=== PATIENT | female | born 1985 | race Caucasian/White ===

== ENCOUNTER 2019-07-20 09:26 | Outpatient (CLI) | payer OTHER, SELFPAY ==
--- NOTE | 2019-07-20 | US_ITS ---
WS: [id number] ULTRASOUND TRANSABDOMINAL HISTORY: MULTIGRAVIDA IN SECOND TRIMESTER : 2 PARA: 1 COMPARISON: None available. FINDINGS: Cervical length is 5.08 cm cm; closed. Placenta grade 0, posterior cardiac tones 160 BPM. The visualized parts including the facial area, skull, chest, abdomen, extremities, and spine a re all normal. Biparietal diameter measures 4.6 cm, equals 20w0d. Head circumference measures 17.4 cm, equals 19w6d. Abdomen circumference measures 14.7 cm, equals 20w0d. Femur length measures 3.2 cm, equals 20w0d. Estimated gestational age 20 weeks gestation An estimated delivery August 07, 2019.. Estimated weight 326 g. US/US OB >= 14 weeks fetus [id number] IMPRESSION: Single live intrauterine uterines . Estimated gestational age 20 week s gestation and estimated delivery December 07, 2019.
== END 2019-07-20 09:27 | disposition home or self-care (01) ==
LOC: RADOUTREAD 11:52
PROVIDERS: Family Provider Family Medicine; Visit Provider Family Medicine
DX: Z76.89 Persons encountering health services in other specified circumstances (principal)

== ENCOUNTER 2019-12-07 01:20 | Inpatient (IN) | payer OTHER, SELFPAY ==
[2019-12-07] VITALS (116 sets, daily range): BP systolic 0–157; BP diastolic 0–104; PULSE 66–119; RESP 16; TEMP 36.6–37.1; O2SAT 97–100; BMI 35.6
[2019-12-07 01:48] LABS: Basophils % 0.4 %; Eosinophils # 0.1 10^3/uL (0.0-0.8); Eosinophils % 1.2 %; Hematocrit 35.3 % (37.0-47.0); Hemoglobin 11.3 g/dL (11.5-15.3); Lymphocytes % 21.2 %; Mean Corpuscular Hemoglobin 29.5 pg (28.0-34.0); Mean Corpuscular Volume 92.2 fL (81-99); Mean Platelet Volume 11.1 fL (7.4-10.4); Monocytes # 0.8 10^3/uL (0.2-0.9); Monocytes % 8.3 %; Neutrophils # 6.28 10^3/uL (1.8-7.7); Neutrophils % 67.9 %; Nucleated Red Blood Cells % 0 %; Platelet Count 234 10^3/cmm (130-400); Red Blood Count 3.83 10^6/uL (4.1-5.3); Red Cell Distribution Width 14.6 % (12.1-15.1); White Blood Count 9.3 10^3/uL (4.0-10.0)
[2019-12-07] MEDS: miSOPROStol 100 mcg tablet 25 MCG VAGINAL (02:33)
[2019-12-07] MEDS: lactated ringers 1,000 ML 999 ML IV ×3 (09:13→11:15)
--- NOTE | 2019-12-07 10:45 | ANES.PREANE2 ---
Pre-Anesthetic Assessment Pre-Anesthetic Assessment: Height/Weight: Height 1.65 m Weight 97.069 kg Temp Pulse Resp BP Pulse Ox 98.2 F 83 16 74/54 97 12/07/19 07:27 12/07/19 10:45 12/07/19 05:08 12/07/19 10:45 12/07/19 10:41 Preop Diagnosis: IUP Proposed Procedure: epidural Familial anesthetic complications: non Social: Social History: No alcohol and No tobacco Exam: Pre-Anes Outpt Exam: alert, oriented x 3, clear to auscultation bilaterally and regular rate & rhythm Airway: Cervical ROM: WNL MP: 2 Dentition: Chipped Anesthetic Plan: ASA status: 2 Anesthesia: Regional (specify below) Risk of > 500 ml blood loss (7ml/kg in children): Yes, adequate IV access and fluids planned Meds/Allergies Current Medications: Current Medications Generic Name Dose Route Start Last Admin Trade Name Freq PRN Reason Stop Dose Admin Lactated Ringer's 1,000 mls @ 999 m ls/hr 12/07/19 01:18 12/07/19 10:17 Lactated Ringers IV 999 mls/hr .Q1H1M PRN Administration labor PFSH Anesthesia Female Reproductive History: : 2 Data Anesthesia CBC & Chem 7: 12/07/19 01:05 Other Labs: Laboratory Results - last 48 hr 12/07/19 01:05 WBC 9.3 RBC 3.83 L Hgb 11.3 L Hct 35.3 L MCV 92.2 MCH 29.5 MCHC 32.0 RDW 14.6 Plt Count 234 MPV 11.1 H Neut % (Auto) 67.9 Lymph % (Auto) 21.2 Stokes % (Auto) 8.3 Eos % (Auto) 1.2 Baso % (Auto) 0.4 Neut # (Auto) 6.28 Lymph # (Auto) 2.0 Stokes # (Auto) 0.8 Eos # (Auto) 0.1 Baso # (Auto) 0.0 Nucleated RBC % (auto) 0 Nucleated RBCs # 0.0 Cardiac Studies: No Data to Display
--- NOTE | 2019-12-07 10:46 | ANES.PROC ---
Anesthesia Procedures Procedure/Date: 12/07/19 Epidural: Time Out Performed: Yes Consents Signed: Procedure Consent Consent: requested by attending/covering physician, from patient, risks and benefits reviewed and patient agrees to proceed Lumbar Level: L3-L4 Epidural position: sitting Epidural procedure: sterile prep of area, 1% lidocaine to numb the area, 18 g needle, negative for paresthesia passed, neg for paresthesia, test dose given, 1.5% xylocaine 1:200k epi (3 cc), placed PCEA, no systemic response, sterile dressing applied, L.U.D. no apparent complications and 0.2% Ropiavacaine @ mls/hr Additional Comments: Difficult placement, moved down to L3/4 interspace, RODNEY at 7 cm, threaded to 12 cm. Bupivicaine 0.25% 8 cc w/ fentanyl 100 mcg given via epidural catheter with subsequent pain-free contractions
[2019-12-07] MEDS: dextrose 5%-lactated ringers 1,000 ML 125 ML IV (13:15)
--- NOTE | 2019-12-07 13:37 | PC.NURSE ---
bolus dose given by anesthesia at 1034
[2019-12-07] MEDS: ondansetron 2 mg/ML SDV 2 mL 4 MG IVP (14:48)
[2019-12-07] MEDS: oxytocin 30 UNIT/500 ML BAG IV (18:14)
--- NOTE | 2019-12-07 19:40 | PC.NURSE ---
Pt pushing in lithotomy position.
--- NOTE | 2019-12-07 20:04 | PM.DELIVERY ---
Delivery Note: Date of delivery: December 07, 2019 Pre-Delivery Course: 34 year old at 40 weeks who presented for induction. She was placed on Cytotec 25 mcg. An amniotomy was performed. An epidural was placed. The patient progressed to complete without difficulty. She was allowed to labor down for about an hour. Despite her laboring down, there was minimal impact Delivery: DELIVERY: The patient progressed to complete without difficulty. Despite pushing for approximately hour, the baby no position change. I was able to palpate the baby's scalp determined that was in OP position. I manually rotated the head to an OA position. She then was able to make much better progress with pushing. She delivered a female with a weight of 8 pounds 12 ounces with Apgars of 7, 9. The baby was delivered from the SARATH position. The mouth and nose were suctioned after being placed on the mother's abdomen. After 1 minute the cord was then clamped and cut. There was no nuchal cord. There was no meconium. The placenta and 3 vessel cord were delivered intact shortly thereafter. The perineum and vaginal vault were carefully examined. No lacerations were noted. Blood loss was 200 mL. both the mother and the baby were in stable condition. Post-Delivery Status: Good A&P Assessment and plan (1) Spontaneous vaginal delivery: Status: Acute (2) 40 weeks gestation of : Status: Acute Coding Level of Care Code Acute Flight Attendant Ramp for Chg Fwd Diagnoses Spontaneous vaginal delivery O80 40 weeks gestation of Z3A.40
[2019-12-07] MEDS: benzocaine-menthol 78 gm Canister 1 SPRAY TOPICAL (21:30)
[2019-12-07] MEDS: lanolin oint 7 gm 1 APPLIC TOPICAL (21:31)
[2019-12-08 00:10] VITALS: BP 129/75; PULSE 75; RESP 16; O2SAT 98
[2019-12-08 05:10] VITALS: BP 126/72; PULSE 80; RESP 16; TEMP 36.8; O2SAT 98
--- NOTE | 2019-12-08 07:15 | P.DS_ITS ---
Discharge Providers STRATEGIC DEVELOPMENT MANAGER Date of Admission: 12/07/19 01:20 Date of Discharge: 12/08/19 Attending Provider at Admission: Colton Acosta MD Attending Provider at Discharge: Colton Acosta MD Primary Care Provider: Colton Acosta MD Diagnoses at Discharge Discharge Diagnosis (1) Spontaneous vaginal delivery: Status: Acute (2) 40 weeks gestation of : Status: Acute Reason for Visit Reason for Visit: Induction of labor Hospital Course Hospital Course: The patient presented to the hospital for induction of labor. She was initiated on Cytotec. An epidural was placed. An amniotomy was performed. Her labor was augmented with Pitocin as she was pushing. The baby's head had to be manually rotated to an OA position. The vaginal delivery was unremarkable otherwise. Her course has been unremarkable. Her bleeding has been within normal limits. She is breast-fed well. Her pain is been well controlled overall. She has had some problem with nausea due to the cramping and pain she has had while breast-feeding. Information Peripartum Data: Infant Delivery Method: Vaginal Physical Exam Narrative: EXAM NARRATIVE: The patient is alert. She appears comfortable. Her heart has a regular rate and rhythm with no murmurs appreciated. Lungs are clear to auscultation bilaterally. Her fundus is firm and below the umbilicus. Urinary Catheter Management^: Montano: Cath Placed During This Visit: yes, but has since been removed by the nurse Reason for Continuing Indwelling Catheter: Acute Urinary Retention or Obstruction Urinary Catheter Date of Insertion: 12/07/19 Urinary Catheter Time of Insertion: 11:40 Date Urinary Catheter Removed: 12/07/19 Time Urinary Catheter Discontinued: 17:48 Discharge Data Data Completed and Pending: Pending at discharge Category Date Time Status Hemagram Timed Lab 12/08/19 08:03 Ordered Vitals: Last Vital Signs Temp 98.2 F 12/08/19 05:10 Pulse 80 12/08/19 05:10 Resp 16 12/08/19 05:10 BP 126/72 12/08/19 05:10 Pulse Ox 98 12/08/19 05:10 Discharge Plan Discharge Patient Disposition: Home Condition: Stable Prescriptions: New ibuprofen 800 mg Tablet 800 mg PO TID Qty: 45 RF: 0 -U 106.5-1 mg Capsule 1 cap PO DAILY Qty: 90 RF: 0 Discharge Orders: Discharge Order (Routine); Ordered 12/08/19 Ordered By: Colton Acosta Referrals: Colton Acosta MD [Primary Care Provider] - 6 Weeks Discharge Diet: Usual diet Discharge Activity: Limit activity as instructed Discharge Attestations STRATEGIC DEVELOPMENT MANAGER Time Spent in Discharge Care*: less than 30 min Coding Level of Care Code Acute Highway Maintenance Supervisor for Chg Fwd Diagnoses Spontaneous vaginal delivery O80 40 weeks gestation of Z3A.40
[2019-12-08 08:40] LABS: Hematocrit 32.4 % (37.0-47.0); Hemoglobin 10.1 g/dL (11.5-15.3); Mean Corpuscular HGB Conc 31.2 g/dL (30.0-36.0); Mean Corpuscular Hemoglobin 28.7 pg (28.0-34.0); Mean Platelet Volume 11.1 fL (7.4-10.4); Platelet Count 194 10^3/cmm (130-400); Red Blood Count 3.52 10^6/uL (4.1-5.3); Red Cell Distribution Width 14.5 % (12.1-15.1); White Blood Count 12.3 10^3/uL (4.0-10.0)
[2019-12-08] MEDS: HYDROcodone-acetaminophen 5-325 mg Tablet PO (09:33)
[2019-12-08] MEDS: prenatal vitamin Capsule 1 CAP PO (09:34)
[2019-12-08] MEDS: docusate sodium 100 mg Capsule PO ×2 (09:34→18:00)
[2019-12-08 09:38] VITALS: BP 123/69; PULSE 81; RESP 18; TEMP 36.8; O2SAT 98
[2019-12-08 18:03] VITALS: BP 105/78; PULSE 63; RESP 18; TEMP 36.7; O2SAT 98
[2019-12-08 21:05] VITALS: BP 120/74; PULSE 71; RESP 16; TEMP 37; O2SAT 98
--- NOTE | 2019-12-08 22:40 | PC.NURSE ---
Pt. will need to get MMR as outpt or in doctor office.
--- NOTE | 2019-12-08 22:41 | PC.NURSE ---
Discharge instructions gone over.
== END 2019-12-08 21:05 | disposition home or self-care (01) | DRG 807 ==
LOC: OBGYN 12-08 07:18 → OPOB 12-08 07:59
PROVIDERS: Admitting Provider Family Medicine; PCP Family Medicine; Visit Provider Family Medicine
DX: O80 Encounter for full-term uncomplicated delivery (principal); Z37.0 Single live birth; Z3A.40 40 weeks gestation of pregnancy
CPT/HCPCS: 12345; 36415; 51702; 59025; 59409; 85025; 85027; 96375; 98960; J2405; J2795

== ENCOUNTER 2022-03-14 06:00 | Outpatient (CLI) | payer OTHER, SELFPAY | END 2022-03-14 06:01 | disposition home or self-care (01) | LOC: LAB 15:31 | PROVIDERS: Visit Provider Surgery | DX: R10.9 Unspecified abdominal pain (principal) | CPT/HCPCS: 87338 ==

== ENCOUNTER 2022-11-09 07:33 | Outpatient (CLI) | payer OTHER, SELFPAY ==
[2022-11-09 09:35] LABS: Free T4 Free Thyroxine 1.15 ng/dL (0.82-1.77); Testosterone Total 24.8 ng/dL (8.4-48.1); Thyroid Stimulating Hormone 2.13 uIU/mL (0.27-4.20)
[2022-11-09 10:56] LABS: Prolactin 9.61 ng/mL (4.8-23.3)
[2022-11-10 09:54] LABS: T3 Total 113 ng/dL (76-181)
[2022-11-10 10:09] LABS: Dehydroepiandrosterone Sulfate 225 mcg/dL (19-237)
== END 2022-11-09 07:34 | disposition home or self-care (01) ==
PROVIDERS: PCP Family Medicine; Visit Provider Internal Medicine
DX: E28.2 Polycystic ovarian syndrome (principal); R63.5 Abnormal weight gain
CPT/HCPCS: 82627; 84146; 84403; 84439; 84443; 84480

== ENCOUNTER → 2023-04-16 09:14 | Outpatient (BNVA) | payer OTHER, SELFPAY | PROVIDERS: PCP Family Medicine; Visit Provider Family Medicine | DX: O26.892 Other specified pregnancy related conditions, second trimester (principal); Z3A.26 26 weeks gestation of pregnancy | CPT/HCPCS: 76816 ==

== ENCOUNTER → 2023-05-25 12:26 | Outpatient (BNVA) | payer OTHER, SELFPAY | PROVIDERS: PCP Family Medicine; Visit Provider Emergency Medicine | DX: J02.9 Acute pharyngitis, unspecified (principal) | CPT/HCPCS: 87071; 87880 ==

== ENCOUNTER → 2023-05-26 | Outpatient (BNVA) | payer OTHER, SELFPAY ==
--- NOTE | 2023-07-16 08:37 | P.ANESASSM_ITS ---
Pre-Anesthetic Assessment Height/Weight: Height 1.63 m Epidural Familial anesthetic complications: None Social No alcohol and No tobacco Exam alert, oriented x 3, clear to auscultation bilaterally and regular rate & rhythm Airway Mallampati: Class III Dentition: other (missing) GI Gastroesophageal Reflux Disease Metabolic PCOS Anesthetic Plan ASA status: 2 Anesthesia: Regional (specify below) Risk of > 500 ml blood loss (7ml/kg in children): Yes, adequate IV access and fluids planned Medications/Allergies Home Medications Medication Instructions Recorded Confirmed Last Taken Type ibuprofen 800 mg tablet 800 mg PO TID #45 tabs 12/08/19 05/25/23 Unknown Rx multivitamin no.51-ferrous 1 cap PO DAILY #90 caps 12/08/19 05/25/23 Unknown Rx fumarate 106.5 mg-folic acid 1 mg capsule (-U) azithromycin 500 mg tablet 500 mg PO DAILY 5 days #5 tabs 05/25/23 05/25/23 Unknown Rx (Zithromax) Allergies Allergy/AdvReac Type Severity Reaction Status Date / Time No Known Allergies Allergy Verified 05/25/23 12:16 [facility] Anesthesia Medical History Psychiatric care PCOS (polycystic ovarian syndrome) Social History Smoking and tobacco/nicotine status: never used tobacco/nicotine Data Anesthesia Cardiac Studies: No Data to Display
== END ==
PROVIDERS: PCP Family Medicine; Visit Provider Emergency Medicine
DX: J02.9 Acute pharyngitis, unspecified (principal)
CPT/HCPCS: 87071

== ENCOUNTER 2023-07-28 21:54 | Inpatient (IN) | payer OTHER, SELFPAY ==
[2023-07-28 19:35] VITALS: BMI 37.9
[2023-07-28 20:21] LABS: Basophils % 0.3 %; Eosinophils # 0.1 10^3/uL (0.0-0.8); Eosinophils % 0.9 %; Lymphocytes # 1.9 10^3/uL (0.8-4.8); Lymphocytes % 21.7 %; Mean Corpuscular HGB Conc 33.2 g/dL (30-55); Mean Corpuscular Hemoglobin 30.8 pg (27-33); Mean Corpuscular Volume 92.5 fl (85-98); Mean Platelet Volume 11.1 fL (7.4-10.4); Monocytes # 0.6 10^3/uL (0.2-0.9); Monocytes % 7.2 %; Neutrophils # 5.91 10^3/uL (1.8-7.7); Neutrophils % 68.9 %; Nucleated Red Blood Cells % 0 %; Platelet Count 228 10^3/cmm (157-399); White Blood Count 8.59 10^3/uL (3.29-11.43)
[2023-07-28 20:37] VITALS: BP 139/76; PULSE 41
[2023-07-28] MEDS: miSOPROStol 100 mcg tablet 25 MCG VAGINAL (21:09)
[2023-07-28 21:10] VITALS: BP 134/78; PULSE 78
[2023-07-28 22:44] VITALS: BP 144/87; PULSE 75
[2023-07-28 23:11] VITALS: TEMP 36.6
[2023-07-29] VITALS (70 sets, daily range): BP systolic 94–188; BP diastolic 49–98; PULSE 38–103; RESP 16; TEMP 36.4–37.1; O2SAT 97; BMI 37.9
[2023-07-29] MEDS: morphine 4 mg/mL SDV 1 mL 8 MG IM (00:39)
[2023-07-29] MEDS: promethazine 25 mg/mL SDV 1 mL IM (00:40)
[2023-07-29] MEDS: miSOPROStol 100 mcg tablet 25 MCG VAGINAL (02:20)
[2023-07-29] MEDS: fentaNYL 50 mcg/mL INJ 2mL IVP (07:48)
--- NOTE | 2023-07-29 07:48 | P.HPUD_ITS ---
Labor & Delivery H&P Update Date of Procedure: July 29, 2023 Date H&P Performed: 07/26/23 Changes to previous documentation: Presenting for induction. No changes since last visit. Admission Diagnosis: 37-year-old 3 para 2-0-0-2 at 41 weeks estimated gestational age. Primary indication for procedure: Postdates Planned procedure: Spontaneous vaginal delivery Other information: The patient is an otherwise healthy 37-year-old 3 para 2-0-0-2 female w ho presented to the hospital for induction. Her had been relatively unremarkable. Her blood type is O+. She is rubella immune. She failed her 1 clinical glucose screen but passed her 3-hour glucose screen. She is rubella immune. She is GBS negative. The remainder of her infectious disease profile is within normal limits.
[2023-07-29] MEDS: lactated ringers 1,000 ML 999 ML IV (08:00)
[2023-07-29] MEDS: ondansetron 2 mg/ML SDV 2 mL 4 MG IVP ×2 (08:04→14:59)
[2023-07-29] MEDS: ROPivacaine syringe 100 MG/50 ML SYRINGE 10 MG EPIDURAL ×2 (08:06→10:55)
--- NOTE | 2023-07-29 09:12 | ANES.PAUD2 ---
Pre-Anesthetic Update Pre-Anesthetic Assessment: Date of Surgery/Procedure: 07/29/23 Proposed Procedure: Epidural Any changes to Pre-Anesthetic Assessment?: No Labs Last 48hrs: Short CBC 07/28/23 Range/Units 19:53 WBC 8.59 (3.29-11.43) 10^ 3/uL Hgb 12.30 (11.27-16.99) g/ dL Hct 37.0 (36-47) % MCV 92.5 (85-98) fl Plt Count 228 (157-399) 10^3/c mm Neut % (Auto) 68.9 % Neut # (Auto) 5.91 (1.8-7.7) 10^3/u L Vitals: Temperature 97.9 F 07/28/23 23:11 Pulse Rate 93 07/29/23 09:08 Pulse Rhythm Regular 07/28/23 19:35 Pulse Strength 3+ Normal 07/28/23 19:35 Respiratory Rate 16 07/29/23 07:48 Respiratory Effort Spontaneous, Non- Labored 07/29/23 00:39 Respiratory Depth Normal 07/29/23 00:39 Respiratory Patter n Normal 07/28/23 19:35 Blood Pressure 156/85 07/29/23 09:08 Pulse Oximetry 97 07/29/23 08:36 Oxygen Delivery Me thod Room Air 07/28/23 19:35 Exam: Pre-Anes Outpt Exam: alert, oriented x 3, clear to auscultation bilaterally and regular rate & rhythm Cardiac Studies: No Data to Display
--- NOTE | 2023-07-29 09:12 | ANES.PROC ---
Anesthesia Procedures Procedure/Date: 07/29/23 Epidural: Time Out Performed: Yes Consents Signed: Procedure Consent Consent: requested by attending/covering physician, from patient, from other, risks and benefits reviewed and patient agrees to proceed Lumbar Level: L3-L4 Epidural position: sitting Epidural procedure: sterile prep of area, 1% lidocaine to numb the area, 18 g needle, negative for paresthesia passed, neg for paresthesia, test dose given, 1.5% xylocaine 1:200k epi (5), 0.2% Ropivacaine bolus ml (5), placed PCEA, no systemic response, sterile dressing applied, L.U.D. no apparent complications and 0.2% Ropiavacaine @ mls/hr (13) Additional Comments: LOT at 5 cm, threaded to 11.5 cm, attached pump and started bolus, quickly discovered pump not primed. paused and primed pump. pain of contractions decreased from 9/10 to 7/10. Encouraged bolus use as frequently as possible. Possibility that introduction of epidural air may be leading to patchy block
[2023-07-29] MEDS: dextrose 5%-lactated ringers 1,000 ML 125 ML IV ×2 (10:00→13:41)
--- NOTE | 2023-07-29 15:33 | PM.DELIVERY ---
Delivery Note: Date of delivery: July 29, 2023 Pre-delivery diagnoses: 37-year-old 3 para 2-0-0-2 at 41 weeks estimated gestational age Post-delivery diagnoses: Status post spontaneous vaginal delivery Procedure: Spontaneous vaginal delivery Estimated blood loss (mL): 100 Pre-Delivery Course: The patient presented to the hospital for induction due to being postdates. She was placed on Cytotec 25 mcg per vagina. An amniotomy was performed. An epidural was placed she progressed to complete without difficulty. Delivery: DELIVERY: The patient progressed to complete without difficulty. She delivered a female with a weight of 9 pounds 9 ounces with Apgars of 9, 9. The baby was delivered from the SARATH position. The baby's mouth and nose were suctioned at the site of the perineum. The baby was then completely delivered and placed on the mother's abdomen. The cord was then clamped and cut. There was no nuchal cord. There was no meconium. The placenta and 3 vessel cord were delivered intact shortly thereafter. The perineum and vaginal vault were carefully examined. No lacerations were noted. Both the mother and the baby were in stable condition. Post-Delivery Status: Good A&P Assessment and plan (1) Spontaneous vaginal delivery: I anticipate routine care Coding Level of Care Code Acute Code for Chg Fwd Diagnoses Spontaneous vaginal delivery O80
[2023-07-29] MEDS: docusate sodium 100 mg Capsule PO (17:14)
[2023-07-29] MEDS: HYDROcodone-acetaminophen 5-325 mg Tablet PO ×2 (17:14→23:28)
[2023-07-29] MEDS: ibuprofen 800 mg tablet PO (20:04)
[2023-07-29 20:41] LABS: Basophils % 0.1 %; Eosinophils % 0.1 %; Hematocrit 36.4 % (36-47); Lymphocytes # 1.3 10^3/uL (0.8-4.8); Lymphocytes % 9.2 %; Mean Corpuscular Hemoglobin 30.5 pg (27-33); Mean Corpuscular Volume 92.6 fl (85-98); Mean Platelet Volume 10.9 fL (7.4-10.4); Monocytes # 0.8 10^3/uL (0.2-0.9); Monocytes % 5.5 %; Neutrophils # 12.32 10^3/uL (1.8-7.7); Neutrophils % 84.4 %; Nucleated Red Blood Cells % 0 %; Platelet Count 187 10^3/cmm (157-399); Red Blood Count 3.93 10^6/uL (3.85-5.65); White Blood Count 14.59 10^3/uL (3.29-11.43)
[2023-07-29] MEDS: NIFEdipine ER (24 hr) 30 mg Tablet PO (20:47)
[2023-07-29 20:59] LABS: Add Urine Microscopic? YES; Bilirubin Urine Neg (Negative); Blood Urine 3+ (Negative); Glucose Urine UA 1+ (Normal); Ketones Urine 1+ (Negative); Leukocyte Esterase Urine 1+ (Negative); Nitrate Urine Negative (Negative); Protein Urine 1+ (Negative); Specific Gravity, Urine 1.005 (1.005-1.030); Urine Appearance Hazy (CLEAR); Urobilinogen Urine Neg (Negative); pH Urine 6 (5-7)
[2023-07-29 21:02] LABS: Add Urine Culture? Yes; Bacteria Urine TRACE /hpf; RBC Urine >100 /hpf (0-2); Squamous Epithelial Cell Urine 0-4 /hpf (0-5); Urine Color Yellow (Yellow)
[2023-07-29 21:05] LABS: Alanine Aminotransferase 12 U/L (0-33); Alkaline Phosphatase 101 U/L (35-105); Blood Urea Nitrogen 6 mg/dL (6-20); Calcium 8.4 mg/dL (8.5-10.5); Carbon Dioxide 19 mmol/L (22-29); Chloride 109 mmol/L (98-107); Creatinine Clr Calc Pharmacy 150.6457; Globulin 2.4 g/dL (1.3-4.6); Glomerular Filtration Rate 113.8 mL/min (90-130); Glucose 176 mg/dL (65-115); Osmolality Calculated 292 mOsm/kg (285-295); Sodium 140 mmol/L (136-145); Total Bilirubin 0.7 mg/dL (0.15-1.2); Total Protein 5.4 g/dL (6.6-8.7); Uric Acid 5.5 mg/dL (2.4-5.7)
[2023-07-29 21:06] LABS: Anion Gap 15.6 (5-19); Aspartate Amino Transferase 26 U/L (0-32); Potassium 3.6 mmol/L (3.5-5.1)
[2023-07-29 21:12] LABS: Urine Creatinine 30 mg/dL (28-217)
[2023-07-29 21:15] LABS: Urine Protein Random 21 mg/dL
[2023-07-30 00:23] VITALS: BP 132/82; PULSE 90
[2023-07-30 02:25] VITALS: BP 120/60; PULSE 36
[2023-07-30 04:23] LABS: Hematocrit 35.2 % (36-47); Mean Corpuscular HGB Conc 32.7 g/dL (30-55); Mean Corpuscular Hemoglobin 30.8 pg (27-33); Mean Corpuscular Volume 94.4 fl (85-98); Mean Platelet Volume 11.1 fL (7.4-10.4); Platelet Count 182 10^3/cmm (157-399); Red Blood Count 3.73 10^6/uL (3.85-5.65); Red Cell Distribution Width 15.2 % (12.1-15.1); White Blood Count 12.98 10^3/uL (3.29-11.43)
[2023-07-30] MEDS: HYDROcodone-acetaminophen 5-325 mg Tablet PO ×2 (04:30→19:03)
[2023-07-30 04:32] VITALS: BP 116/59; PULSE 72
--- NOTE | 2023-07-30 06:54 | P.PN_ITS ---
MANAGER SYSTEM Subjective 2 Subjective: Interval history: After the delivery, the patient began having some intermittent severe blood pressures. Some appear to be related to pain, but she had other elevated blood pressures that were not clearly related to pain. I elected to treat her with Procardia XL, and we did a preeclamptic profile which found that her protein creatinine ratio was 0.7. There was some blood in the urine, so it is likely that that number was artificially elevated. The patient has no symptoms of preeclampsia otherwise. She has not had any increased swelling. She has not had any headache or visual changes. Labor: Station: 0 Amniotic Membrane Status: Leaking Monitor Mode: External Contraction Pattern: Irregular Vitals/I&O/Wt Last Vital Signs Temp 98.7 F 07/29/23 21:30 Pulse 72 07/30/23 04:32 Resp 16 07/29/23 07:48 BP 116/59 07/30/23 04:32 Pulse Ox 97 07/29/23 08:36 O2 Del Method Room Air 07/28/23 19:35 07/29/23 07/29/23 07/30/23 14:59 22:59 06:59 Intake Total 510.417 / 510.417 Output Total 400 / 400 Balance 510.417 / 510.417 -400 / 110.417 Weight last 48 hrs Weight 221 lb Weight 221 lb Weight 221 lb Physical Exam 2 Narrative: The patient is alert. She appears comfortable. Her heart has a regular rate and rhythm with no murmurs appreciated. Lungs are clear to auscultation bilaterally. Her fundus is firm and at the umbilicus. Urinary Catheter Management: Montano: Cath Placed During This Visit: yes Urinary Catheter Date of Insertion: 07/29/23 Urinary Catheter Time of Insertion: 10:00 Data 07/30/23 04:05 07/29/23 20:32 A&P Assessment and plan (1) 41 weeks gestation of : We will continue to monitor her blood pressure. I am hopeful that she would be fine since she has no other symptoms of preeclampsia at this time. (2) Gestational hypertension: (3) Spontaneous vaginal delivery: Attestations 2 Medical Necessity Statement*: I anticipate the patient will need to stay in the hospital 1 more day to monitor her blood pressure. Coding Level of Care Code Acute Code for Chg Fwd Diagnoses 41 weeks gestation of O48.0; Z3A.41 Gestational hypertension O13.9 Spontaneous vaginal delivery O80
--- NOTE | 2023-07-30 08:00 | ANE.PACU2 ---
Inpatient post-anesthesia follow up: Airway intact: Yes Vital signs: Temperature 98.1 F Pulse Rate 80 Respiratory Rate 16 Blood Pressure 135/82 Pulse Oximetry 98 Oxygen Delivery Me thod Room Air Oxygen Flow Rate Fraction of Inspir ed Oxygen Hydration adequate: Yes Nausea and vomiting: No Pain level: 1 Mental status: Baseline Epidural Start/End: Epidural Start Date: 07/29/23 Epidural Start Time: 08:32 Epidural End Date: 07/29/23 Epidural End Time: 15:33
[2023-07-30] MEDS: lanolin oint 7 gm 1 APPLIC TOPICAL (08:58)
[2023-07-30] MEDS: docusate sodium 100 mg Capsule PO ×2 (08:59→19:04)
[2023-07-30] MEDS: ibuprofen 800 mg tablet PO ×3 (08:59→20:43)
[2023-07-30 09:36] VITALS: BP 99/56; PULSE 70; RESP 18; TEMP 36.2
[2023-07-30 15:51] VITALS: BP 143/72; PULSE 72; TEMP 36.1
[2023-07-30 20:00] VITALS: BP 144/93; PULSE 65; RESP 16; TEMP 36.7; O2SAT 97
[2023-07-31] VITALS: BP 144/83
[2023-07-31 04:49] VITALS: BP 150/91; PULSE 78; RESP 18; TEMP 36.8; O2SAT 94
--- NOTE | 2023-07-31 06:40 | PM.OBGYDC ---
Discharge Providers RIVETER PORTABLE MACHINE Date of Admission: 07/28/23 21:54 Date of Discharge: 07/31/23 Attending Provider at Admission: Colton Acosta MD Attending Provider at Discharge: Colton Acosta MD Primary Care Provider: Colton Acosta MD Diagnoses at Discharge Discharge Diagnosis (1) 41 weeks gestation of : Status: Acute (2) Gestational hypertension: Status: Acute (3) Spontaneous vaginal delivery: Status: Acute Reason for Visit Reason for Visit: induction of labor Hospital Course Hospital Course The patient presented to the hospital for induction due to postdates. She was placed on Cytotec 25 mcg. An epidural was placed. She progressed to complete and had an unremarkable delivery of a healthy appearing LGA female. Her course was remarkable for having elevated blood pressures. She was treated with Procardia and responded appropriately. She had no signs or symptoms of preeclampsia otherwise. Her blood pressure improved with treatment. She did begin having some more moderate blood pressures last night but none in the severe range. Information Peripartum Data: Infant Delivery Method: Vaginal Physical Exam Narrative: The patient is alert. She appears comfortable. Her heart has a regular rate and rhythm with no murmurs appreciated. Lungs are clear to auscultation bilaterally. Her fundus is firm and below the umbilicus. Urinary Catheter Management: Montano: Cath Placed During This Visit: yes Urinary Catheter Date of Insertion: 07/29/23 Urinary Catheter Time of Insertion: 10:00 Discharge Data Studies Completed and Pending Pending at discharge Category Date Time Status Urine Culture Stat Lab 07/29/23 20:44 Received Laboratory Results WBC 12.98 10^3/uL (3.29-11.43) H 07/30/23 04:05 RBC 3.73 10^6/uL (3.85-5.65) L 07/30/23 04:05 Hgb 11.50 g/dL (11.27-16.99) 07/30/23 04:05 Hct 35.2 % (36-47) L 07/30/23 04:05 MCV 94.4 fl (85-98) 07/30/23 04:05 MCH 30.8 pg (27-33) 07/30/23 04:05 MCHC 32.7 g/dL (30-55) 07/30/23 04:05 RDW 15.2 % (12.1-15.1) H 07/30/23 04:05 Plt Count 182 10^3/cmm (157-399) 07/30/23 04:05 MPV 11.1 fL (7.4-10.4) H 07/30/23 04:05 Neut % (Auto) 84.4 % 07/29/23 20:32 Lymph % (Auto) 9.2 % 07/29/23 20:32 Kings % (Auto) 5.5 % 07/29/23 20:32 Eos % (Auto) 0.1 % 07/29/23 20:32 Baso % (Auto) 0.1 % 07/29/23 20:32 Neut # (Auto) 12.32 10^3/uL (1.8-7.7) H 07/29/23 20:32 Lymph # (Auto) 1.3 10^3/uL (0.8-4.8) 07/29/23 20:32 Kings # (Auto) 0.8 10^3/uL (0.2-0.9) 07/29/23 20:32 Eos # (Auto) 0.0 10^3/uL (0.0-0.8) 07/29/23 20:32 Baso # (Auto) 0.0 10^3/uL (0.0-0.1) 07/29/23 20:32 Nucleated RBC % (auto) 0 % 07/29/23 20:32 Nucleated RBCs # 0.0 /100WBC 07/29/23 20:32 Sodium 140 mmol/L (136-145) 07/29/23 20:32 Potassium 3.6 mmol/L (3.5-5.1) 07/29/23 20:32 Chloride 109 mmol/L (98-107) H 07/29/23 20:32 Carbon Dioxide 19 mmol/L (22-29) L 07/29/23 20:32 Anion Gap 15.6 (5-19) 07/29/23 20:32 BUN 6 mg/dL (6-20) 07/29/23 20:32 Creatinine 0.6 mg/dL (0.5-0.9) 07/29/23 20:32 GFR Calculation 113.8 mL/min (90-130) 07/29/23 20:32 Glucose 176 mg/dL (65-115) H 07/29/23 20:32 Calculated Osmolality 292 mOsm/kg (285-295) 07/29/23 20:32 Uric Acid 5.5 mg/dL (2.4-5.7) 07/29/23 20:32 Calcium 8.4 mg/dL (8.5-10.5) L 07/29/23 20:32 Total Bilirubin 0.7 mg/dL (0.15-1.2) 07/29/23 20: AST 26 U/L (0-32) 07/29/23 20: ALT 12 U/L (0-33) 07/29/23 20: Alkaline Phosphatase 101 U/L (35-105) 07/29/23 20: Total Protein 5.4 g/dL (6.6-8.7) L 07/29/23 20: Albumin 3.0 g/dL (3.5-5.2) L 07/29/23 20: Globulin 2.4 g/dL (1.3-4.6) 07/29/23 20:32 Urine Color Yellow (Yellow) 07/29/23 20:44 Urine Appearance Hazy (CLEAR) A 07/29/23 20:44 Urine pH 6 (5-7) 07/29/23 20:44 Ur Specific [place] 1.005 (1.005-1.030) 07/29/23 20:44 Urine Protein 1+ (Negative) H 07/29/23 20:44 Urine Glucose (UA) 1+ (Normal) H 07/29/23 20:44 Urine Ketones 1+ (Negative) H 07/29/23 20:44 Urine Blood 3+ (Negative) H 07/29/23 20:44 Urine Nitrate Negative (Negative) 07/29/23 20:44 Urine Bilirubin Neg (Negative) 07/29/23 20:44 Urine Urobilinogen Neg mg/dL (Negative) 07/29/23 20:44 Ur Leukocyte Esterase 1+ (Negative) H 07/29/23 20:44 Urine RBC >100 /hpf (0-2) H 07/29/23 20:44 Urine WBC 5-10 /hpf (0-5) H 07/29/23 20:44 Ur Squamous Epith Cells 0-4 /hpf (0-5) H 07/29/23 20:44 Amorphous Sediment Not Reportable 07/29/23 20:44 Urine Bacteria Trace /hpf (NONE) 07/29/23 20:44 U Random Total Protein 21 mg/dL 07/29/23 20:44 Urine Creatinine 30 mg/dL (28-217) 07/29/23 20:44 Protein/Creatinin Ratio 0.70 mg/mg CR 07/29/23 20:44 Vitals Last Vital Signs Temp 98.2 F 07/31/23 04:49 Pulse 78 07/31/23 04:49 Resp 18 07/31/23 04:49 BP 150/91 07/31/23 04:49 Pulse Ox 94 07/31/23 04:49 O2 Del Method Room Air 07/31/23 04:49 Results Labs OB ([facility]): Obstetrics US 04/16/23 Hct 35.2 % (36-47) L 07/30/23 Hgb 11.50 g/dL (11.27-16.99) 07/30/23 Plt Count 182 10^3/cmm (157-399) 07/30/23 TSH 2.13 uIU/mL (0.27-4.20) 11/09/22 Free T4 1.15 ng/dL (0.82-1.77) 11/09/22 Hemoglobin A1c 4.3 % (4.0-6.0) 01/25/22 Uric Acid 5.5 mg/dL (2.4-5.7) 07/29/23 Micro Urine Specimen 07/29/23 Prolactin 9.61 ng/mL (4.8-23.3) 11/09/22 Discharge Plan Discharge Patient Disposition: Home Condition: Stable Prescriptions: New ibuprofen 800 mg Tablet 800 mg PO TID Qty: 45 0RF nifedipine [Procardia XL] 30 mg tablet extended release 24hr 30 mg PO DAILY Qty: 30 0RF Continued 1 mg Tablet 1 tab PO DAILY Discharge Orders: Discharge Order (Routine); Ordered 07/31/23 Ordered By: Colton Acosta Referrals: Colton Acosta MD [Primary Care Provider] - 4-7 days Discharge Diet: Usual diet Discharge Activity: Limit activity as instructed Patient Instructions: Depression (DC), Opioid Safety (DC), Preeclampsia and Eclampsia After Delivery (GEN), Hemorrhage (DC), OB Discharge Report, OB Food/Drug Interaction Guide, OB Care at Home, Opioid Safety, OB Vaginal Deliveries, Abnormal Bleeding Discharge Attestations RIVETER PORTABLE MACHINE Time Spent in Discharge Care*: less than 30 min Coding Level of Care Code Acute Code for Chg Fwd Diagnoses 41 weeks gestation of O48.0; Z3A.41 Gestational hypertension O13.9 Spontaneous vaginal delivery O80
[2023-07-31 08:52] VITALS: BP 135/82; PULSE 80; RESP 16; TEMP 36.7; O2SAT 98
== END 2023-07-31 08:54 | disposition home or self-care (01) | DRG 807 ==
LOC: OPOB 21:55 → OBGYN 21:55
PROVIDERS: Admitting Provider Family Medicine; PCP Family Medicine; Visit Provider Family Medicine
DX: O48.0 Post-term pregnancy (principal); Z37.0 Single live birth; O16.5 Unspecified maternal hypertension, complicating the puerperium; Z3A.41 41 weeks gestation of pregnancy
CPT/HCPCS: 36415; 51702; 59025; 59409; 80053; 81001; 82570; 84156; 84550; 85025; 85027; 87086; 96372; 96374; 99211; J2270; J2405; J2550; J2795; J3010; J7120; J7121

== ENCOUNTER 2023-10-08 06:36 | Outpatient (CLI) | payer OTHER, SELFPAY ==
--- NOTE | 2023-10-08 06:45 | US_ITS ---
WS: [id number] RIGHT UPPER QUADRANT ULTRASOUND HISTORY: R10.9 - Unspecified abdominal pain COMPARISON: 09/21/2019 Liver: 14.5 cm in length. Normal size liver and echogenicity. No bile duct dilatation or mass. Portal Vein: Normal hepatopetal flow with monophasic waveform. Gallbladder: Normally distended gallbladder with no stones or wall thickening. CBD: 0.3 cm Pancreas: Normal size and echogenicity. Right kidney: 10.5 cm in length. Normal size and echogenicity. No hydronephrosis or mass. Aorta and IVC: Unremarkable abdominal aorta and IVC. No ascites. US/US gall bladder [id number] IMPRESSION: Normal right upper quadrant ultrasound.
== END 2023-10-08 06:37 | disposition home or self-care (01) ==
LOC: RAD 06:36
PROVIDERS: PCP Family Medicine; Visit Provider Surgery
DX: R10.9 Unspecified abdominal pain (principal)
CPT/HCPCS: 76705

== ENCOUNTER → 2024-09-07 13:29 | Outpatient (BNVA) | payer OTHER, SELFPAY | PROVIDERS: PCP Family Medicine; Visit Provider Nurse Practitioner Women's Health | DX: Z00.00 Encounter for general adult medical examination without abnormal findings (principal); Z87.42 Personal history of other diseases of the female genital tract | CPT/HCPCS: 87624 ==

== ENCOUNTER → 2024-10-13 13:24 | Outpatient (BNVA) | payer OTHER, SELFPAY | PROVIDERS: PCP Family Medicine; Visit Provider Nurse Practitioner Women's Health | DX: R30.0 Dysuria (principal) | CPT/HCPCS: 81000; 87086 ==

== ENCOUNTER 2024-10-15 07:56 | Outpatient (CLI) | payer SELFPAY ==
[2024-10-15 09:11] LABS: HF Add Manual Diff No
[2024-10-15 09:14] LABS: Basophils % 0.6 %; Eosinophils # 0.1 10^3/uL (0.0-0.8); Eosinophils % 1.8 %; Hematocrit 43.5 % (36-47); Lymphocytes # 1.4 10^3/uL (0.8-4.8); Lymphocytes % 19.8 %; Mean Corpuscular HGB Conc 33.8 g/dL (30-55); Mean Corpuscular Hemoglobin 30.6 pg (27-33); Mean Corpuscular Volume 90.4 fl (85-98); Mean Platelet Volume 10.4 fL (7.4-10.4); Monocytes # 0.4 10^3/uL (0.2-0.9); Monocytes % 6.3 %; Neutrophils % 71.1 %; Nucleated Red Blood Cells % 0 %; Platelet Count 292 10^3/cmm (157-399); Red Blood Count 4.81 10^6/uL (3.85-5.65); Red Cell Distribution Width 13.1 % (12.1-15.1); White Blood Count 7.03 10^3/uL (3.29-11.43)
[2024-10-15 09:36] LABS: Alanine Aminotransferase 23 U/L (0-33); Albumin Level 4.6 g/dL (3.5-5.2); Alkaline Phosphatase 75 U/L (35-105); Anion Gap 17.9 (5-19); Aspartate Amino Transferase 21 U/L (0-32); Blood Urea Nitrogen 19 mg/dL (6-20); Calcium 9.4 mg/dL (8.5-10.5); Carbon Dioxide 23 mmol/L (22-29); Chloride 104 mmol/L (98-107); Chol HDL Ratio 5.23 mg/dL (0.0-4.40); Cholesterol 183 mg/dL (0-200); Globulin 2.7 g/dL (1.3-4.6); Glomerular Filtration Rate 94.7 mL/min (90-130); Glucose 102 mg/dL (65-115); HDL Cholesterol 35 mg/dL (60-100); LDL Cholesterol Calculated 125 mg/dL (50-129); LDL HDL Ratio 3.57 RATIO (0.00-3.22); Osmolality Calculated 294 mOsm/kg (285-295); Potassium 3.9 mmol/L (3.5-5.1); Sodium 141 mmol/L (136-145); Total Bilirubin 0.9 mg/dL (0.15-1.2); Total Protein 7.3 g/dL (6.6-8.7); Triglycerides 113 mg/dL (0-150)
[2024-10-15 09:48] LABS: Estmated Average Glucose 85; Hemoglobin A1C 4.6 % (4.0-6.0)
== END 2024-10-15 07:57 | disposition home or self-care (01) ==
LOC: LAB 07:56
PROVIDERS: PCP Family Medicine; Visit Provider Dermatology
DX: Z01.89 Encounter for other specified special examinations (principal)

== ENCOUNTER → 2024-10-23 07:24 | Outpatient (BNVA) | payer OTHER, SELFPAY | PROVIDERS: PCP Family Medicine; Visit Provider Family Medicine Adult Medicine | DX: R39.9 Unspecified symptoms and signs involving the genitourinary system (principal) | CPT/HCPCS: 81000 ==

== ENCOUNTER → 2024-10-26 12:29 | Outpatient (BNVA) | payer OTHER, SELFPAY | PROVIDERS: PCP Family Medicine; Visit Provider Nurse Practitioner Women's Health | DX: N39.0 Urinary tract infection, site not specified (principal) | CPT/HCPCS: 81000 ==

== ENCOUNTER 2024-10-28 13:47 | Emergency (ER) | payer OTHER, SELFPAY ==
[2024-10-28 13:57] VITALS: BP 151/94; PULSE 90; RESP 14; TEMP 36.8; O2SAT 96; BMI 32.1
[2024-10-28 14:18] LABS: Bilirubin Urine 1+ (Negative); Blood Urine Negative (Negative); Glucose Urine UA Negative (Normal); Ketones Urine Negative (Negative); Leukocyte Esterase Urine 1+ (Negative); Protein Urine Negative (Negative); Specific Gravity, Urine 1.014 (1.005-1.030); Urine Appearance Clear (CLEAR); pH Urine 6.5 (5-7)
[2024-10-28 14:23] LABS: Add Urine Microscopic? YES; Bacteria Urine None Seen /hpf; Hyaline Casts Urine 0-4 /lpf; RBC Urine 0-2 /hpf (0-2); Squamous Epithelial Cell Urine 0-5 /hpf (0-5); WBC Urine 0-5 /hpf (0-5)
[2024-10-28 14:32] LABS: Nitrate Urine Positive (Negative); Urine Color Orange (Yellow)
[2024-10-28 14:33] LABS: Basophils # 0.1 10^3/uL (0.0-0.1); Basophils % 0.7 %; Eosinophils # 0.1 10^3/uL (0.0-0.8); Eosinophils % 1.3 %; Hematocrit 40.3 % (36-47); Lymphocytes # 2.2 10^3/uL (0.8-4.8); Lymphocytes % 28.6 %; Mean Corpuscular HGB Conc 32.5 g/dL (30-55); Mean Corpuscular Hemoglobin 29.7 pg (27-33); Mean Corpuscular Volume 91.4 fl (85-98); Mean Platelet Volume 10.6 fL (7.4-10.4); Monocytes # 0.4 10^3/uL (0.2-0.9); Monocytes % 4.9 %; Neutrophils # 4.81 10^3/uL (1.8-7.7); Nucleated Red Blood Cells % 0 %; Platelet Count 293 10^3/cmm (157-399); Red Blood Count 4.41 10^6/uL (3.85-5.65); Red Cell Distribution Width 13.3 % (12.1-15.1); White Blood Count 7.52 10^3/uL (3.29-11.43)
[2024-10-28 14:40] LABS: HCG, Serum Qual Negative (Negative)
[2024-10-28 14:41] LABS: UA Slide Review UA Slide Review Perf
[2024-10-28 14:42] LABS: Alanine Aminotransferase 22 U/L (0-33); Albumin Level 4.5 g/dL (3.5-5.2); Alkaline Phosphatase 81 U/L (35-105); Anion Gap 17.9 (5-19); Aspartate Amino Transferase 23 U/L (0-32); Blood Urea Nitrogen 16 mg/dL (6-20); Calcium 9.3 mg/dL (8.5-10.5); Carbon Dioxide 24 mmol/L (22-29); Chloride 101 mmol/L (98-107); Globulin 2.6 g/dL (1.3-4.6); Glomerular Filtration Rate 113.1 mL/min (90-130); Glucose 108 mg/dL (65-115); Lipase 32 U/L (13-60); Osmolality Calculated 292 mOsm/kg (285-295); Sodium 140 mmol/L (136-145); Total Bilirubin 0.7 mg/dL (0.15-1.2); Total Protein 7.1 g/dL (6.6-8.7)
[2024-10-28 14:44] LABS: Potassium 2.9 mmol/L (3.5-5.1)
[2024-10-28 15:39] LABS: Magnesium 2.1 mg/dL (1.7-2.3)
--- NOTE | 2024-10-28 15:39 | ED_ITS ---
HPI - Female Genitourinary 2 General: Chief complaint: Urogenital-Female Stated complaint: possible kidney infection Time Seen by Provider: 10/28/24 15:10 Source: patient Mode of arrival: ambulatory Limitations: no limitations History of Present Illness: Patient is a 38-year-old female who presents to the ED today with complaints of dysuria, lower abdominal/pelvic discomfort, nausea, mild lower back pain, and some urinary frequency/urgency. She states around October 08, she started having dysuria, frequency, hesitancy and was seen by her PCP on the who ran UA and prescribed her Macrobid. Culture came back positive for E. Coli rao sensitive. She finished the Macrobid and symptoms seemingly resolved but then returned. On October 23, she went to the walk-in clinic where she was placed back on the Macrobid and also Ciprofloxacin, along with Solifenacin due to concerns for bladder spasms. At some point she also had a dose of IM Rocephin. Symptoms did improve slightly after this but later had nausea/sweats/subjective fevers/back pain. 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 Has colposcopy scheduled with Dr. Juan on . She is not having vaginal bleeding/discharge. No concerns for STI. She denies vomiting, changes in bowel movements, flank pain, chance of (IUD) and denies history of urolithiasis. She does have a history of chronic UTIs back in 2010, which she was placed on low-dose long-term Macrobid, but these have resolved a long time ago -was seeing Dr. Gutierrez. elicited complaint: dysuria, UTI and back pain (lower back pain) Pertinent past history: recurrent UTIs Onset (ago): week(s) Location of symptoms: low back Severity: mild Female Urogenital Radiation: Suprapubic Quality of pain: burning Consistency: intermittent Vaginal discharge: none Vaginal bleeding: none Urinary symptoms: Difficulty Urinating, Dysuria and Frequency Exacerbating factors: urination Relieving factors: medication Associated symptoms: Reports abdominal pain, nausea and other (low back pain); Deny headache(s) or syncope Treatment prior to arrival: acetaminophen and other (macrobid, ciprofloxacin, solifenacin, AZO) Sexual activity: Yes Patient : No Possible : other (denies chance of ) Date of Last Menstrual Period: 09/27/24 Related Data Home Medications ?Medication ?Instructions ?Recorded ?Confirmed hydrochlorothiazide 25 mg tablet 25 mg PO DAILY 10/28/24 ciprofloxacin HCl 500 mg tablet 500 mg PO BID 7days 10/28/24 phenazopyridine 200 mg tablet 200 mg PO TID 10/28/24 0 10/28/24 (Pyridium) Previous Rx's ?Medication ?Instructions ?Recorded nitrofurantoin 100 mg PO BID chronic UTI's #90 10/23/24 monohydrate/macrocrystals 100 mg caps capsule (Macrobid) solifenacin 10 mg tablet (Vesicare) 10 mg PO DAILY #14 tabs 10/26/24 potassium chloride 20 mEq 20 meq PO BID #6 tabs tablet,extended release(part/cryst) (Klor-Con M) Allergies Allergy/AdvReac Type Severity Reaction Status Date / Time No Known Allergies Allergy Verified 10/28/24 14:00 Review of Systems 2 Const: Reports: fever(s) (100.4 max); Denies: chills, body aches, fatigue or malaise Card: Denies: chest pain, palpitations, swelling of feet/ankles, lightheadedness or syncope Resp: Denies: dyspnea, productive cough or chest congestion GI: Reports: abdominal pain and nausea; Denies: vomiting, diarrhea, constipation or change in bowel habits : Reports: dysuria, urinary frequency and urinary hesitancy; Denies: flank pain, difficulty voiding, dribbling, nocturia, urinary incontinence, hematuria or genital pruritis Musc: Reports: back pain (lower back pain); Denies: neck pain, extremity pain, extremity swelling, joint pain or joint swelling Skin/Breast: Denies: rash, pruritus, erythema or skin swelling Neuro: Denies: headache(s), numbness in extremities, weakness in extremities or difficulty walking PFSH ED 2 PFSH: Medical History Chronic lower urinary tract infection Gestational hypertension Generalized anxiety disorder Hypertension (~07/2023) PCOS (polycystic ovarian syndrome) Surgical History History of colposcopy (2022) Family History Grandmother Thyroid disease Stroke Grandfather Thyroid disease Father Diabetes Denies family history of Colon cancer Ovarian cancer Heart disease Hyperlipidemia Breast cancer Hypertension Uterine cancer Social History Smoking and tobacco/nicotine status: never used tobacco/nicotine Female Reproductive History: Date of last menstrual period: 09/27/24 Physical Exam 2 Const: COMMON NORMALS: no acute distress, average body habitus, no limitations, alert and well nourished GENERAL APPEARANCE: cooperative Resp: COMMON NORMALS: normal respiratory effort and clear to auscultation bilaterally AUSCULTATION: clear to auscultation bilaterally Cardio: COMMON NORMALS: regular rate and regular rhythm RATE: regular rate RHYTHM: regular rhythm GI: COMMON NORMALS: Normal to inspection, nondistended, normoactive bowel sounds present, Soft to palpation and no masses INSPECTION: Yes normal to inspection PALPATION: Yes Soft to palpation, Yes Tenderness to palpation present (GI) (mild suprapubic/RLQ; non-surgical examination), No Guarding due to palpation present (GI) and No Rigid due to palpation : COMMON NORMALS: Yes no CVA tenderness BLADDER/KIDNEY EXAM: Yes no CVA tenderness Back/Pelvis: COMMON NORMALS: no CVA tenderness Neuro: SENSORIUM/ORIENTATION: Yes alert Course 2 Vital Signs: Vital signs: Vital Signs Temperature 98.3 F 10/28/24 13:57 Pulse Rate 73 10/28/24 18:09 Respiratory Rate 14 10/28/24 13:57 Blood Pressure 120/89 10/28/24 18:09 Pulse Oximetry 95 10/28/24 18:09 Oxygen Delivery Me thod Room Air 10/28/24 18:09 MDM - Female Medical Decision Making Patient's urine culture on 10/13 grew E. coli pansensitive to the Macrobid and Ciprofloxacin that she is on. She is having continued symptoms. CT renal was obtained to rule out urolithiasis/obstruction. She was found to have a large 8 cm right ovarian cyst. She has no hydronephrosis. No perinephric stranding. I suspect that a lot of her symptoms are secondary to the cyst abutting the bladder and causing symptoms/spasms. She will follow-up with Dr. Juan as she already has an appointment with him scheduled on . Her white count here was unremarkable. Vital signs are stable. She was incidentally found to have acute hypokalemia. Will place her on oral potassium over the next 3 days. She was given a dose of this prior to discharge. Her magnesium is normal. UA today is positive for nitrates, 1+ leukocyte esterase. Will go ahead and attempt culture on today's sample. She will also follow up with PCP. Medical Records I reviewed the patient's medical records. Lab Data I reviewed the patient's lab results. 10/28/24 14:16 10/28/24 14:16 Radiology Impressions Abdomen/Pelvis CT 10/28/24 15:58 IMPRESSION: 1. Large 8 cm right ovarian cyst. Ultrasound may be helpful for further characterization. 2. Tiny 2 mm nonobstructing right renal calculus. No significant hydronephrosis. 3. IUD in the central uterus. Transvaginal US 10/28/24 16:58 IMPRESSION: 1. Large 7.3 cm simple cyst in the right ovary. 2. IUD within the endometrial canal. 3. Left ovary not visualized. Laboratory Results WBC 7.52 10^3/uL (3.29-11.43) 10/28/24 14:16 RBC 4.41 10^6/uL (3.85-5.65) 10/28/24 14:16 Hgb 13.10 g/dL (11.27-16.99) 10/28/24 14:16 Hct 40.3 % (36-47) 10/28/24 14:16 MCV 91.4 fl (85-98) 10/28/24 14:16 MCH 29.7 pg (27-33) 10/28/24 14:16 MCHC 32.5 g/dL (30-55) 10/28/24 14:16 RDW 13.3 % (12.1-15.1) 10/28/24 14:16 Plt Count 293 10^3/cmm (157-399) 10/28/24 14:16 MPV 10.6 fL (7.4-10.4) H 10/28/24 14:16 Neut % (Auto) 64.0 % 10/28/24 14:16 Lymph % (Auto) 28.6 % 10/28/24 14:16 Sierra % (Auto) 4.9 % 10/28/24 14:16 Eos % (Auto) 1.3 % 10/28/24 14:16 Baso % (Auto) 0.7 % 10/28/24 14:16 Neut # (Auto) 4.81 10^3/uL (1.8-7.7) 10/28/24 14:16 Lymph # (Auto) 2.2 10^3/uL (0.8-4.8) 10/28/24 14:16 Sierra # (Auto) 0.4 10^3/uL (0.2-0.9) 10/28/24 14:16 Eos # (Auto) 0.1 10^3/uL (0.0-0.8) 10/28/24 14:16 Baso # (Auto) 0.1 10^3/uL (0.0-0.1) 10/28/24 14:16 Nucleated RBC % (auto) 0 % 10/28/24 14:16 Nucleated RBCs # 0.0 /100WBC 10/28/24 14:16 Sodium 140 mmol/L (136-145) 10/28/24 14:16 Potassium 2.9 mmol/L (3.5-5.1) L 10/28/24 14:16 Chloride 101 mmol/L (98-107) 10/28/24 14:16 Carbon Dioxide 24 mmol/L (22-29) 10/28/24 14:16 Anion Gap 17.9 (5-19) 10/28/24 14:16 BUN 16 mg/dL (6-20) 10/28/24 14:16 Creatinine 0.6 mg/dL (0.5-0.9) 10/28/24 14:16 GFR Calculation 113.1 mL/min (90-130) 10/28/24 14:16 Glucose 108 mg/dL (65-115) 10/28/24 14:16 Calculated Osmolality 292 mOsm/kg (285-295) 10/28/24 14:16 Calcium 9.3 mg/dL (8.5-10.5) 10/28/24 14:16 Magnesium 2.1 mg/dL (1.7-2.3) 10/28/24 14:16 Total Bilirubin 0.7 mg/dL (0.15-1.2) 10/28/24 14:16 AST 23 U/L (0-32) 10/28/24 14:16 ALT 22 U/L (0-33) 10/28/24 14:16 Alkaline Phosphatase 81 U/L (35-105) 10/28/24 14:16 Total Protein 7.1 g/dL (6.6-8.7) 10/28/24 14:16 Albumin 4.5 g/dL (3.5-5.2) 10/28/24 14:16 Globulin 2.6 g/dL (1.3-4.6) 10/28/24 14:16 Lipase 32 U/L (13-60) 10/28/24 14:16 HCG, Qual Negative (Negative) 10/28/24 14:16 Urine Color Moore (Yellow) A 10/28/24 13:55 Urine Appearance Clear (CLEAR) 10/28/24 13:55 Urine pH 6.5 (5-7) 10/28/24 13:55 Ur Specific [place] 1.014 (1.005-1.030) 10/28/24 13:55 Urine Protein Negative (Negative) 10/28/24 13:55 Urine Glucose (UA) Negative (Normal) 10/28/24 13:55 Urine Ketones Negative (Negative) 10/28/24 13:55 Urine Blood Negative (Negative) 10/28/24 13:55 Urine Nitrate Positive (Negative) A 10/28/24 13:55 Urine Bilirubin 1+ (Negative) H 10/28/24 13:55 Urine Urobilinogen 1.0 mg/dL (Negative) 10/28/24 13:55 Ur Leukocyte Esterase 1+ (Negative) A 10/28/24 13:55 Urine RBC 0-2 /hpf (0-2) 10/28/24 13:55 Urine WBC 0-5 /hpf (0-5) 10/28/24 13:55 Ur Squamous Epith Cells 0-5 /hpf (0-5) 10/28/24 13:55 Amorphous Sediment Not Reportable 10/28/24 13:55 Urine Bacteria None seen /hpf (NONE) 10/28/24 13:55 Hyaline Casts 0-4 /lpf H 10/28/24 13:55 All radiology interpretation(s) finalized by discharge Discharge Plan Discharge Patient Disposition: Home Clinical Impression: Cyst of right ovary, Acute hypokalemia Condition: Stable Prescriptions: New potassium chloride [Klor-Con M20] 20 mEq tablet,ER particles/crystals 20 meq PO BID Qty: 6 0RF No Action hydrochlorothiazide 25 mg tablet 25 mg PO DAILY nitrofurantoin monohyd/m-cryst [Macrobid] 100 mg capsule 100 mg PO BID Qty: 90 0RF Rx Instructions: must administer with a meal/food solifenacin [Vesicare] 10 mg tablet 10 mg PO DAILY Qty: 14 0RF ciprofloxacin HCl 500 mg tablet 500 mg PO BID phenazopyridine [Pyridium] 200 mg tablet 200 mg PO TID Discharge Orders: Discharge ED (Routine); Ordered 10/28/24 Ordered By: Nadia Moreira Referrals: Colton Acosta MD [Primary Care Provider, [facility]] Patient Instructions: Ovarian Cyst (ED), Hypokalemia (ED), Patient Portal & Elisabeth Instructions Activity Restrictions/Additional Instructions: Please follow-up with Dr. Juan at your currently scheduled appointment on for follow-up of imaging here showing your 8 cm right ovarian cyst. Will culture today's urine. Continue your Ciprofloxacin and Macrobid in the meantime. At this time I do not have any concern for a kidney infection/pyelonephritis. CT scan did not show any obstruction or hydronephrosis of your kidneys. Print Language: Irish Coding Level of Care Code ED [facility] for Tristin Oro
[2024-10-28 15:40] VITALS: BP 124/82; PULSE 84; O2SAT 95
[2024-10-28] MEDS: potassium chloride oral liq 20 mEq/15 mL UDC 40 MEQ PO (15:41)
--- NOTE | 2024-10-28 15:58 | CTR_ITS ---
PROCEDURE INFORMATION: Exam: CT Abdomen And Pelvis Without Contrast Exam date and time: 10/28/2024 4:11 PM Age: 38 years old Clinical indication: Abdominal pain; Flank; Other: Bilat; Additional info: Back pain, UTI like symptoms, unresolving infection TECHNIQUE: Imaging protocol: Computed tomography of the abdomen and pelvis without contrast. Radiation optimization: All CT scans at this facility use at least one of these dose optimization techniques: automated exposure control; mA and/or kV adjustment per patient size (includes targeted exams where dose is matched to clinical indication); or iterative reconstruction. COMPARISON: US gall bladder [id number] 10/08/2023 6:41 AM RADIATION DOSE METRICS: Total DLP (mGy-cm): 729.49 FINDINGS: Lungs: Visualized lung bases are clear. Liver: Unremarkable. Gallbladder and biliary ducts: No radiopaque stones. No significant biliary ductal dilatation. Pancreas: Unremarkable. Spleen: Unremarkable. Adrenal glands: Unremarkable. Kidneys and ureters: There is a 2 mm nonobstructing stone in the mid right kidney. No left-sided renal calculi are detected. No ureteral calculi are detected. No significant hydronephrosis. Stomach and bowel: Unremarkable. Bowel loops are normal in caliber. No evidence for obstruction. No significant mucosal thickening. Appendix: No evidence of appendicitis. Intraperitoneal space: Unremarkable. No free air. No significant fluid collection. Vasculature: The abdominal aorta is normal in caliber. No abdominal aortic aneurysm. Lymph nodes: Unremarkable. No enlarged lymph nodes. Urinary bladder: The urinary bladder is distended and appears smooth walled. Reproductive: There is an IUD within the central uterus. There is a large 8 cm right ovarian cyst. The left ovary is difficult to distinguish from adjacent bowel loops. Bones/joints: Intact. No acute fracture. Soft tissues: Unremarkable. CT/CT kidney stone [id number] IMPRESSION: 1. Large 8 cm right ovarian cyst. Ultrasound may be helpful for further characterization. 2. Tiny 2 mm nonobstructing right renal calculus. No significant hydronephrosis. 3. IUD in the central uterus.
[2024-10-28 16:49] VITALS: BP 113/67; PULSE 76; O2SAT 95
--- NOTE | 2024-10-28 16:58 | USR_ITS ---
PROCEDURE INFORMATION: Exam: US Pelvis, Transvaginal, Non-Obstetric Exam date and time: 10/28/2024 5:39 PM Age: 38 years old Clinical indication: Abnormal findings; Abnormal imaging test; Additional info: Large 8cm ovarian cyst TECHNIQUE: Imaging protocol: Real-time transvaginal pelvic (non-obstetric) ultrasound with image documentation. Transvaginal imaging was used for better evaluation of the endometrium, adnexa, and/or cervix. COMPARISON: CT kidney stone [id number] 10/28/2024 4:11 PM FINDINGS: Uterus: Measures 5.5 x 5.1 x 5.5 cm. Endometrial stripe is homogeneous and measures 6 mm in thickness. There is an IUD within the endometrial canal. Right ovary/adnexa: There is a large 7.3 cm simple appearing cyst in the right ovary. Normal ovarian blood flow on color Doppler. Left ovary/adnexa: Not identified with certainty. Urinary bladder: Urinary bladder is limited. Intraperitoneal space: No free fluid. US/US transvaginal [id number] IMPRESSION: 1. Large 7.3 cm simple cyst in the right ovary. 2. IUD within the endometrial canal. 3. Left ovary not visualized.
[2024-10-28 18:09] VITALS: BP 120/89; PULSE 73; O2SAT 95
[2024-10-28 18:38] VITALS: BP 119/64; PULSE 86; O2SAT 95
== END 2024-10-28 18:39 | disposition home or self-care (01) ==
PROVIDERS: Emergency Medicine; Emergency Provider Physician Assistant; PCP Family Medicine
DX: N83.201 Unspecified ovarian cyst, right side (principal); E87.6 Hypokalemia; I10 Essential (primary) hypertension
CPT/HCPCS: 74176; 76830; 80053; 81001; 83690; 83735; 84703; 85025; 87086; 99284; J9999

== ENCOUNTER → 2024-11-05 13:16 | Outpatient (BNVA) | payer OTHER, SELFPAY | PROVIDERS: PCP Family Medicine; Visit Provider Obstetrics & Gynecology | DX: R87.619 Unspecified abnormal cytological findings in specimens from cervix uteri (principal) | CPT/HCPCS: 81025; 88305; 88342 ==

== ENCOUNTER → 2024-12-31 08:04 | Outpatient (BNVA) | payer OTHER, SELFPAY | PROVIDERS: PCP Family Medicine; Visit Provider Obstetrics & Gynecology | DX: N83.01 Follicular cyst of right ovary (principal); N83.02 Follicular cyst of left ovary | CPT/HCPCS: 76830 ==

== ENCOUNTER 2025-01-19 11:56 | Day surgery (SDC) | payer OTHER, SELFPAY ==
[2025-01-19] VITALS (10 sets, daily range): BP systolic 113–152; BP diastolic 61–89; PULSE 54–72; RESP 16–18; TEMP 36.2–37.1; O2SAT 92–98; BMI 30.9
--- NOTE | 2025-01-19 05:24 | W.PM.OPSFHP ---
Same Day Surgery H&P Indication for Procedure/HPI DATE OF PROCEDURE: January 19, 2025 CHIEF COMPLAINT/INDICATIONFOR SURGICAL PROCEDURE: cervical dysplasia PREOP DIAGNOSIS: cervical dysplasia PLANNED PROCEDURE: Operation Date: 01/19/25 14:55 Proposed Procedures p Excision Tissue Cervix Loop Electrosurgical Excision Procedure (LEEP) 83807 R87.619 n87.1(Not Applicable) - Josh Juan MD Medications/Allergies* Home Medications ?Medication ?Instructions ?Recorded ?Confirmed ?Type hydrochlorothiazide 25 mg tablet 25 mg PO DAILY 09/07/24 11/05/24 History phenazopyridine 200 mg tablet 200 mg PO TID PRN 11/05/24 11/05/24 History (Pyridium) Allergies/Adverse Reactions Allergy/AdvReac Type Severity Reaction Status Date / Time No Known Allergies Allergy Verified 11/05/24 09:25 Pertinent History/Comorbid Conditions* Medical History (Updated 11/05/24 @ 00:00 by RIVERA Hoover) Chronic lower urinary tract infection Gestational hypertension Generalized anxiety disorder Hypertension (~07/2023) PCOS (polycystic ovarian syndrome) Surgical History (Updated 09/09/24 @ 16:00 by Marilyn Harrison NP) History of colposcopy (2022) Family History (Updated 09/07/24 @ 09:34 by Alice Dominique CMA) Diabetes Father Thyroid disease Grandmother Grandfather Stroke Grandmother Denies family history of Colon cancer Ovarian cancer Heart disease Hyperlipidemia Breast cancer Hypertension Uterine cancer Social History Smoking and tobacco/nicotine status: never used tobacco/nicotine Pertinent Exam Findings alert, oriented x 3, clear to auscultation bilaterally and regular rate & rhythm Recommendations Surgery/Procedure today Coding Level of Care Code Acute Code for Chg Fwd
[2025-01-19 12:20] LABS: OR HCG Qualitative Urine Negative (Negative)
--- NOTE | 2025-01-19 12:57 | ANES.PREANE2 ---
Pre-Anesthetic Assessment Height/Weight: Height 1.65 m Weight 84.368 kg Temp Pulse Resp BP Pulse Ox O2 Del Method 97.2 F L 72 18 136/82 92 Room Air 01/19/25 12:32 01/19/25 12:32 01/19/25 12:32 01/19/25 12:46 01/19/25 12:32 01/19/25 12:15 Preop Diagnosis: cervical dysplasia Operation Date: 01/19/25 14:55 Proposed Procedures p Excision Tissue Cervix Loop Electrosurgical Excision Procedure (LEEP) 29243 R87.619 n87.1(Not Applicable) - Josh Juan MD Familial anesthetic complications: None Was Beta Koby taken within 24 hours: N/A Was Clonidine taken within 24 hours: N/A Last intake: Intake Last Liquid Date 01/18/25 Last Liquid Time 23:00 Last Solid Date 01/18/25 Last Solid Time 23:00 Social No alcohol and No tobacco Exam alert, oriented x 3, clear to auscultation bilaterally and regular rate & rhythm Airway Mallampati: Class II Dentition: other (missing) CV/HEM hx gestational HTN Metabolic PCOS Anesthetic Plan ASA status: 2 Anesthesia: General Risk of > 500 ml blood loss (7ml/kg in children): No Medications/Allergies Home Medications ?Medication ?Instructions ?Recorded ?Confirmed ?Last Taken ?Type hydrochlorothiazide 25 mg tablet 25 mg PO DAILY 09/07/24 01/19/25 01/19/25 06:00 History Allergies Allergy/AdvReac Type Severity Reaction Status Date / Time No Known Allergies Allergy Verified 01/19/25 12:17 Current Medications Generic Name Dose Route Start Last Admin Trade Name Shanq PRN Reason Stop Dose Admin Sodium Chloride 1,000 mls @ 30 mls/hr 01/19/25 12:45 01/19/25 12:47 Sodium Chloride 0.9% IV 01/20/25 12:44 30 mls/hr .Q24H SANDRA Administration PFSH Anesthesia Medical History Chronic lower urinary tract infection Gestational hypertension Generalized anxiety disorder Hypertension (~07/2023) PCOS (polycystic ovarian syndrome) Surgical History History of colposcopy (2022) Family History Grandmother Thyroid disease Stroke Grandfather Thyroid disease Father Diabetes Denies family history of Colon cancer Ovarian cancer Heart disease Hyperlipidemia Breast cancer Hypertension Uterine cancer Social History Smoking and tobacco/nicotine status: never used tobacco/nicotine
--- NOTE | 2025-01-19 13:45 | W.PM.OPSUD ---
Surgery/Procedure H&P Update DATE OF PROCEDURE: January 19, 2025 DATE H&P PERFORMED: 01/19/25 H&P UPDATE INFORMATION: I have reviewed H&P completed within last 30 days, I have examined patient prior to procedure and No changes to prior documentation PREOP DIAGNOSIS: cervical dysplasia PLANNED PROCEDURE: Operation Date: 01/19/25 14:55 Proposed Procedures p Excision Tissue Cervix Loop Electrosurgical Excision Procedure (LEEP) 70674 R87.619 n87.1(Not Applicable) - Josh Juan MD
--- NOTE | 2025-01-19 14:10 | PM.OP ---
Operative Report Date of procedure: January 19, 2025 Pre-op diagnosis: cervical dysplasia Post-op diagnosis: same Post-op findings: IUD string in place, visualized to be short, at os Procedure done: Electrosurgical loop excision of the cervix Implants: none Specimens removed/disposition: cervical tissue Surgeon: Josh Juan MD Anesthesia: MAC Estimated blood loss (mL): 0 Complications: none Findings: see above Condition: stable Disposition: PACU Brief History: 39 y.o. with JOSH II on cervical biopsy Procedure: The patient was taken to the operating room and placed supine on the table. MAC anesthesia was induced. The patient was placed in dorsolithotomy position. The patient was prepped and draped in the usual sterile fashion. A bivalve speculum was placed in the vagina. The IUD string was noted to be short at the cervical os. The anterior lip of the cervix was grasped with a single toothed tenaculum. The cervix was then infiltrated at the cervicovaginal junction with 20 U of vasopressin to decrease bleeding. Electrosurgical loop excision of the cervix was done to a depth of approximately 5 mm, taking care to avoid the IUD string. Excellent hemostasis was noted. All instruments were then removed. The patient was placed supine, awakened, and taken to the recovery room. Postoperative condition: stable EBL: 0 Complications: none Sponge and instrument counts were correct x two
--- NOTE | 2025-01-19 15:35 | ANE.PACU2 ---
Inpatient post-anesthesia follow up: Airway intact: Yes Vital signs: Temperature 98.8 F Pulse Rate 68 Respiratory Rate 17 Blood Pressure 113/61 Pulse Oximetry 92 Oxygen Delivery Me thod Room Air Oxygen Flow Rate 2 Fraction of Inspir ed Oxygen Hydration adequate: Yes Nausea and vomiting: No Pain level: 1 Mental status: Baseline
== END 2025-01-19 15:35 | disposition home or self-care (01) ==
PROVIDERS: Anesthesiology; PCP Family Medicine; Visit Provider Obstetrics & Gynecology
PROC: (CPT 57522; principal; 2025-01-19 14:45)
DX: N87.9 Dysplasia of cervix uteri, unspecified (principal); N72 Inflammatory disease of cervix uteri; N32.89 Other specified disorders of bladder; I10 Essential (primary) hypertension; E28.2 Polycystic ovarian syndrome; F41.9 Anxiety disorder, unspecified
CPT/HCPCS: 57522; 51702; 81025; 88307; A4216; J2405; J2704; J3010; J3490; J7030; J9999

== ENCOUNTER 2025-04-15 07:30 | Outpatient (CLI) | payer OTHER, SELFPAY | END 2025-04-15 07:31 | PROVIDERS: PCP Family Medicine; Visit Provider Internal Medicine Cardiovascular Disease | DX: R07.9 Chest pain, unspecified (principal); R94.31 Abnormal electrocardiogram [ECG] [EKG] | CPT/HCPCS: 93005 ==

== ENCOUNTER 2025-04-15 07:52 | Outpatient (CLI) | payer SELFPAY ==
[2025-04-15 09:01] LABS: HF Add Manual Diff No
[2025-04-15 09:05] LABS: Hematocrit 41.3 % (36-47); Hemoglobin 14.00 g/dL (11.27-16.99); Mean Corpuscular HGB Conc 33.9 g/dL (30-55); Mean Corpuscular Hemoglobin 30.1 pg (27-33); Mean Corpuscular Volume 88.8 fl (85-98); Nucleated Red Blood Cells % 0 %; Platelet Count 261 10^3/cmm (157-399); Red Blood Count 4.65 10^6/uL (3.85-5.65); White Blood Count 6.26 10^3/uL (3.29-11.43)
[2025-04-15 09:25] LABS: Estmated Average Glucose 77; Hemoglobin A1C 4.3 % (4.0-6.0)
[2025-04-15 09:49] LABS: Alanine Aminotransferase 20 U/L (0-33); Albumin Level 4.7 g/dL (3.5-5.2); Alkaline Phosphatase 77 U/L (35-105); Anion Gap 19.8 (5-19); Aspartate Amino Transferase 18 U/L (0-32); Blood Urea Nitrogen 13 mg/dL (6-20); Calcium 9.0 mg/dL (8.5-10.5); Carbon Dioxide 21 mmol/L (22-29); Chloride 105 mmol/L (98-107); Cholesterol 169 mg/dL (0-200); Globulin 2.8 g/dL (1.3-4.6); Glucose 94 mg/dL (65-115); HDL Cholesterol 36 mg/dL (60-100); Osmolality Calculated 294 mOsm/kg (285-295); Potassium 3.8 mmol/L (3.5-5.1); Sodium 142 mmol/L (136-145); Thyroid Stimulating Hormone 1.50 uIU/mL (0.27-4.20); Total Protein 7.5 g/dL (6.6-8.7); Triglycerides 157 mg/dL (0-150)
== END 2025-04-15 07:53 | disposition home or self-care (01) ==
PROVIDERS: PCP Family Medicine; Visit Provider Dermatology
DX: Z01.89 Encounter for other specified special examinations (principal); R94.31 Abnormal electrocardiogram [ECG] [EKG]
CPT/HCPCS: 36415; 93005

== ENCOUNTER 2025-04-30 07:38 | Outpatient (CLI) | payer OTHER, SELFPAY ==
--- NOTE | 2025-04-30 07:45 | USCV_ITS ---
Ellen Blanton Age: 39 Gender: F : 1985 Exam Date: 04/30/2025 08:24 Ordering Phys: Duke Ruiz MD ([email or web address]) Technologist: John Valle Exam Location: [facility] Indication: sob BP: 134 / 96 HR: 60 Rhythm: Sinus Technical Quality: Adequate MEASUREMENTS (Male / Female) Normal Values 2D ECHO LV Diastolic Diameter PLAX 5.1 cm 4.2 - 5.9 / 3.9 - 5.3 cm IVS Diastolic Thickness 0.8 cm 0.6 - 1.0 / 0.6 - 0.9 cm IVS Systolic Thickness 1.5 cm LVPW Diastolic Thickness 0.9 cm 0.6 - 1.0 / 0.6 - 0.9 cm LVPW Systolic Thickness 1.7 cm LVOT Diameter 2.1 cm LV Ejection Fraction 2D Teich 76.3 % LV Ejection Fraction MOD 4C 71.9 % LV Ejection Fraction MOD 2C 58.2 % LV Ejection Fraction 2C AL 58.6 % LA Diameter 3.4 cm RA Systolic Volume 4C AL 38.6 ml RA Systolic Volume 4C MOD 39.0 ml LA Sys Volume AL 39.4 cm cubed LA Sys Volume Index AL 19.3 cm cubed/m squared Aorta at Sinotubular Diameter 2.6 cm IVC Diameter 1.8 cm M-MODE LA Ao Ratio MM 1.4 AV Cusp Separation MM 1.2 cm DOPPLER AV Peak Velocity 116.0 cm/s LVOT Peak Velocity 81.0 cm/s AV Area Cont Eq vti 2.7 cm squared AV Area Cont Eq pk 2.3 cm squared MV Peak Velocity 90.0 cm/s MV Area PHT 6.4 cm squared Mitral E to A Ratio 1.1 TV Peak Velocity 163.5 cm/s TR Peak Velocity 179.0 cm/s TR Peak Gradient 12.8 mmHg TR Mean Velocity 139.0 cm/s TR Mean Gradient 8.4 mmHg TR Velocity Time Integral 39.5 cm PV Peak Velocity 93.0 cm/s RV Ejection Time 0.3 s FINDINGS Left Ventricle Normal left ventricular size, systolic function and wall thickness, with no regional wall motion abnormalities. Left ventricular ejection fraction is estimated at 55 %. Normal diastolic function. Right Ventricle Normal right ventricular size and systolic function. Right Atrium Normal right atrial size. Left Atrium Moderately increased left atrial size. IA Septum Normal appearance of the interatrial septum. Mitral Valve Moderately thickened mitral valve. No mitral valve stenosis. Mild mitral valve regurgitation. Aortic Valve Thickened aortic valve. No aortic valve stenosis. No aortic valve regurgitation. Tricuspid Valve Normal tricuspid valve structure. No tricuspid valve stenosis or regurgitation. Normal pulmonary pressure. Pulmonic Valve Normal pulmonic valve structure. No pulmonic valve stenosis or regurgitation. Pericardium No pericardial effusion. Aorta Normal diameter of the aortic root and ascending thoracic aorta. IVC Normal IVC diameter. CONCLUSIONS Normal left ventricular size, systolic function and wall thickness, with no regional wall motion abnormalities. Left ventricular ejection fraction is estimated at 55 %. Normal diastolic function. Moderately thickened mitral valve. No mitral valve stenosis. Mild mitral valve regurgitation. Moderately increased left atrial size. There is no pericardial effusion. Right atrial pressure is around 5 mm of mercury. Ho Herbert MD (Electronically Signed) Final Date: 09 May 2025 15:06 S
== END 2025-04-30 07:39 | disposition home or self-care (01) ==
LOC: RAD 07:40
PROVIDERS: PCP Family Medicine; Visit Provider Internal Medicine Cardiovascular Disease
DX: R06.02 Shortness of breath (principal); I51.7 Cardiomegaly; I34.0 Nonrheumatic mitral (valve) insufficiency; I35.8 Other nonrheumatic aortic valve disorders
CPT/HCPCS: 93306